=== PATIENT | male | born 1955 | race Caucasian/White ===

== ENCOUNTER 2024-01-28 11:01 | Outpatient (AMB) | payer OTHER, MEDICAID, SELFPAY ==
[2024-01-28 11:09] VITALS: BP 143/74; PULSE 62; RESP 20; TEMP 36.6; O2SAT 92; BMI 21.8
--- NOTE | 2024-01-28 11:09 | PD.ORTHCLVIS ---
Vital signs 01/28/24 11:09 Height 1.63 m Height Method Stated Weight 58 kg Weight Measurement Method Estimated by Patient BMI 21.8 BP 143/74 H Blood Pressure Source Automatic Cuff Blood Pressure Location Right Upper Arm Position Sitting Respiration 20 Pulse 62 Pulse Source Monitor Temp 97.8 F Temp Source Temporal Artery Scan Pulse Oximetry (%) 92 L Oxygen Delivery Method Room Air Med/Allergies Allergies & Medications Allergies NKA* Allergy (Uncoded 01/28/24 11:10) Medication Reconciliation ramipril 5 mg tablet (Altace) PO DAILY ##0 05/11/12 [History Confirmed 01/28/24] atorvastatin 40 mg tablet 40 mg PO QDAY 01/14/24 [History Confirmed 01/28/24] carvedilol 6.25 mg tablet 6.25 mg PO BID 01/14/24 [History Confirmed 01/28/24] docusate sodium 100 mg capsule 100 mg PO QDAY 01/14/24 [History Confirmed 01/28/24] ferrous sulfate 325 mg (65 mg iron) tablet 325 mg PO QDAY 01/14/24 [History Confirmed 01/28/24] lidocaine HCl 1 % topical gel (Burn Relief with Lidocaine) ea topical 01/14/24 [History Confirmed 01/28/24] Subjective Visit Visit for: follow up visit, knee and x-rays Immunization / Flu Flu Vaccine in the Last 12 Months: No Flu Vaccine Exclusion Criteria: No Exclusion Criteria History of Present Illness Chief complaint: FOLLOW UP Date of injury / onset of symptoms: TREVOR Allred is a pleasant 68-year-old male with a history of a BKA on the left. This happened after a traumatic injury. He has severe right knee arthritis as well. He has an MRI that shows significant degenerative changes as well as medial and lateral meniscus tears. He is seen in our orthopedic surgeon who gave him a cortisone injection. He reports the pain is miserable. He takes Vega for the pain. This been ongoing for over 3 to 5 years. He has also tried over 20 sessions of physical therapy Personal History Occupation: DISABLED Pain Pain level (0-10): 9 Pain duration: ALL DAY Pain location: inside (medial), outside (lateral), anterior and posterior Pain quality: sharp Pain timing: increases with activity and stairs Associated signs & symptoms: weakness Ambulatory data Ambulatory device: cane Review of Systems Review of Systems: All systems negative unless otherwise noted in HPI. Exam Exam Patient is in no acute distress and is cooperative with the examination today. Breathing is nonlabored. In no respiratory distress. Bilateral extremities were evaluated and demonstrates sensation intact to light touch. Palpable pedal pulses are present. No significant edema is present. Bilateral hips were examined. The patient has no pain with log roll of the hips. Internal rotation to 30 degrees and external rotation to 30 degrees is painless. Negative FADIR. The left knee was examined. The left knee is in [varus] alignment. Range of motion from [0-115] degrees. Knee is stable to varus and valgus as well as AP translation with <5mm. Patient has a [negative] McMurrays. There is [no] pain with patellofemoral compression and [no] crepitus noted. The knee is [tender] to palpation [medially]. The right knee was also examined. The right knee is in [varus] alignment. Range of motion from [0-120] degrees. Knee is stable to varus and valgus as well as AP translation with <5mm. Patient has a [negative] McMurrays. There is [no] pain with patellofemoral compression and [no] crepitus noted. The knee is [tender] to palpation [medially]. The x-rays reports says that there is mild DJD. I cannot login to clear the system and open EMR but synapse cannot physically pull up an image. Assessment and Plan Problem List (1) Degenerative arthritis of knee, bilateral: Status: Acute Plan: Patient is a pleasant 68-year-old male with a history of a left BKA who is currently smoking and has right knee arthritis. We discussed nonoperative options. His x-ray report says there is mild arthritis. I cannot physically see it. I recommend that he get his imaging if he wants me to see it. He does want to continue with conservative treatment wants a cortisone injection today. Recommend knee cortisone injection as patient would like to proceed with conservative treatment at this time. The risks and benefits of the procedure were reviewed with the patient and patient gave verbal consent to continue with the procedure. Procedure: performed by Dr. Connor Using sterile technique the Right knee was thoroughly prepped with alcohol, and approximately 1 cc of Kenalog 40 mg/mL and 4 cc of 1% lidocaine was injected without resistance into the medial tibial femoral joint space. The patient tolerated the procedure. Advanced Care Planning Discussion Advance care planning discussed with:: patient Office Procedures GNS Level of Care Nursing/Assessment Patient Status: Established Patient Nursing Assessment/Reassesment: Medication Reconciliation, Update PMH in EMR and Vital Signs Coordination of Care: Complex Care/Chronic Disease 5 or more, Education Complex Pt/Fam, Consent,records obtained, informed consent, Results/Orders obtained and Staff clarify orders Established Patient Charge Established Patient Point Assignment: 105 Established Patient Point Charge: EP Level 3 (80-115) Medication Given Medication Given Medication Given: Yes Documented Dose Given: 4 Route: Infiitration Medication Given Medication Given Medication Given: Yes Documented Dose Given: 1 Route: Infiitration Office Meds Xylocaine 10 mg/mL (1 %) injection solution Performing Provider: Mando Connor MD Performing Location: [facility] Administered by: Mando Connor MD on 01/28/24 11:27 Dose Route Admin Location Dispensed Lot Number Expiration Date [facility] Special Makeup Fx Artist Instructor 20 mL Infiltration 20 mL [id number] [facility] triamcinolone acetonide 40 mg/mL suspension for injection Performing Provider: Mando Connor MD Performing Location: [facility] Administered by: Mando Connor MD on 01/28/24 11:27 Dose Route Admin Location Dispensed Lot Number Expiration Date [facility] Special Makeup Fx Artist Instructor 40 mg intra-articular 1 mL [id number] [employer] Past Medical History Past Medical History Have you ever been diagnosed with any of the following: Cardiology Problems Hypertension: Yes Respiratory Problems Smoking: Yes Smoking Cessation Counseling: No Smoking Exposure: Yes
== END 2024-01-28 11:26 | disposition home or self-care (01) ==
LOC: HODSRG 11:01
PROVIDERS: PCP Family Medicine; Referring Provider Family Medicine; Supervising Provider Orthopaedic Surgery Adult Reconstructive Orthopaedic Surgery; Visit Provider Orthopaedic Surgery Adult Reconstructive Orthopaedic Surgery
DX: M17.11 Unilateral primary osteoarthritis, right knee (principal); Z89.512 Acquired absence of left leg below knee; I10 Essential (primary) hypertension
CPT/HCPCS: 20610; 99213; J3301; J3490; G0463